=== PATIENT | female | born 2000 | race Caucasian/White ===

== ENCOUNTER 2022-03-01 23:48 | Emergency (ER) | payer OTHER ==
[~2022-03-01] VITALS: Ht 162.6 cm; Wt 112.5 kg
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
--- NOTE | 2022-03-02 00:12 | NUR ---
[facility]IVER FORM SIGNED BY PT
[2022-03-02] MEDS ORDERED: MORPHINE SULFATE INJ 2 MG/ML DISP.SYRIN ONE ×2 (00:14→01:14)
--- NOTE | 2022-03-02 00:19 | NUR ---
PT TAKEN TO CT VIA [facility]
[2022-03-02] MEDS ORDERED: MORPHINE SULFATE INJ 2 MG/ML DISP.SYRIN IV ONE ×2 (00:30→01:30)
--- NOTE | 2022-03-02 01:19 | NUR ---
[employer] AT PT'S BEDSIDE
[2022-03-02] MEDS ORDERED: HYDR-4275 PO (01:53)
[2022-03-02 02:22] VITALS: BP 141/72
--- NOTE | 2022-03-02 02:22 | NUR ---
Patient discharged to home in stable condition. Written and verbal after care instructions given. Patient verbalizes understanding of instruction. WHEELCHAIR ASSIST. PATIENT FAMILY IN WAITING ROOM
== END 2022-03-02 02:24 | disposition home or self-care (01) ==
LOC: ER 03-02
DX: S70.02XA Contusion of left hip, initial encounter (principal); S50.11XA Contusion of right forearm, initial encounter; V49.59XA Passenger injured in collision with other motor vehicles in traffic accident, initial encounter; Y93.89 Activity, other specified; Y92.413 State road as the place of occurrence of the external cause; Y99.8 Other external cause status
CPT/HCPCS: 99284; 96374; 72192; 96376; 73090; 73503; J2270 ×2; 73502